=== PATIENT | male | born 1980 | race Caucasian/White ===

== ENCOUNTER 2022-03-12 12:22 | Emergency (ER) | payer OTHER, SELFPAY ==
[2022-03-12 12:53] VITALS: BP 149/98; PULSE 115; RESP 16; TEMP 36.3; O2SAT 99
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
== END 2022-03-12 14:03 | disposition home or self-care (01) ==
PROVIDERS: Emergency Provider Nurse Practitioner
DX: S39.012A Strain of muscle, fascia and tendon of lower back, initial encounter (principal); S46.811A Strain of other muscles, fascia and tendons at shoulder and upper arm level, right arm, initial encounter; V44.5XXA Car driver injured in collision with heavy transport vehicle or bus in traffic accident, initial encounter
CPT/HCPCS: 99203; G0463

== ENCOUNTER → 2022-03-19 14:07 | Outpatient (CLI) | payer OTHER, SELFPAY ==
--- NOTE | ~2022-03-19 | XR_ITS ---
EXAMINATION: XR shoulder RT min 2V INDICATION: Right shoulder pain TECHNIQUE: Four views of the right shoulder are submitted. COMPARISON: None FINDINGS: Normal alignment. No fracture. Glenohumeral and acromioclavicular joint spaces are normal. Soft tissues are unremarkable. IMPRESSION: 1. No acute osseous abnormality. Reviewed, dictated and finalized at location B. RPRISE SOFTWARE ENGINEER
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
--- NOTE | ~2022-03-19 | XR_ITS ---
EXAMINATION: XR cervical spine 4-5V DATE: 03/19/2022 14:49 INDICATION: Sprain of ligaments of cervical spine, initial. TECHNIQUE: 6 views of cervical spine on 7 radiographs were obtained. COMPARISON: None. FINDINGS: There is mild kyphosis of cervical spine. There is 5 degrees levocurvature of cervical spin e. Vertebral body heights are normal. There is mildly decreased disc height at C4-C5, moderately decr eased disc height at C5-C6, and mildly decreased disc height at C6-C7. At C5-C6, there is severe bila teral uncovertebral joint osteoarthritis. There is multilevel mild facet joint osteoarthritis. There is mild central canal stenosis at C5-C6. No prevertebral soft tissue swelling. IMPRESSION: 1. Moderate spondylosis at C5-C6 and mild spondylosis at other levels. Reviewed, dictated and finalized at location A. SORY APPLICATION DEVELOPER
== END ==
PROVIDERS: PCP Family Medicine; Visit Provider Family Medicine
DX: M25.511 Pain in right shoulder (principal); M54.41 Lumbago with sciatica, right side; S13.4XXA Sprain of ligaments of cervical spine, initial encounter; V89.2XXA Person injured in unspecified motor-vehicle accident, traffic, initial encounter; M47.812 Spondylosis without myelopathy or radiculopathy, cervical region; M51.36 Other intervertebral disc degeneration, lumbar region
CPT/HCPCS: 72050; 72110; 73030

== ENCOUNTER 2023-03-18 08:42 | Outpatient (CLI) | payer OTHER, SELFPAY ==
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
[2023-04-05 19:33] VITALS: BMI 41.3
== END 2023-03-19 12:10 | disposition home or self-care (01) ==
LOC: ANHCSM 08:43
PROVIDERS: PCP Family Medicine; Visit Provider Nurse Practitioner Family
DX: G47.33 Obstructive sleep apnea (adult) (pediatric) (principal)
CPT/HCPCS: 95800